=== PATIENT | female | born 1975 | race African-American/Black ===

== ENCOUNTER 2016-12-22 19:17 | Inpatient (IN) ==
[2016-12-22] MEDS ORDERED: LACTATED RINGERS 1,000 ML IV ONE (19:50)
[2016-12-22] MEDS ORDERED: ONDANSETRON 4 MG/2 ML VIAL IV STA (19:50)
[2016-12-22] MEDS ORDERED: HYDROmorphone 2 MG/1 ML VIAL IV STA (19:50)
[2016-12-22] MEDS ORDERED: ONDANSETRON 4 MG/2 ML VIAL ONE (19:54)
[2016-12-22] MEDS ORDERED: HYDROmorphone 2 MG/1 ML VIAL ONE (19:55)
[2016-12-22 20:03] LABS: Basophils % 0.1 % (0.0-0.8); Eosinophils % 0.4 % (0.00-10.9); Hematocrit 24.6 VOL% (35.7-47.0); Hemoglobin 7.4 GM/DL (12.0-16.0); Immature Granulocytes % 0.7 %; Immature Granulocytes Absolute 0.08 #; Lymphocytes # 0.4 10*3/uL (1.4-4.0); Lymphocytes % 3.7 % (21.3-54.2); Mean Corpuscular HGB Conc 30.1 GM/DL (32-36); Mean Corpuscular Hemoglobin 22 PG (27-34); Mean Corpuscular Volume 72.6 FL (87-102); Monocytes # 0.1 10*3/uL (0.11-0.8); Monocytes % 0.9 % (1.7-12.7); NRBC # 0.03 10*3/uL; Neutrophils # 10.3 10*3/uL (1.4-7.4); Neutrophils % 94.2 % (38.7-73.9); Platelet Count 348 T/CUMM (130-400); Red Blood Count 3.39 MC/CUMM (3.8-5.5); Red Cell Distribution Width 17.1 % (9.3-17.3)
--- NOTE | 2016-12-22 20:12 | EKG Report ---
Stationary ECG Study [facility] ER Test Date: 12/22/2016 7:32:03 PM Pat Name: SUZY DICKERSON Department: Room: Gender: F Lock Master: Faisal : 1975 Requested by: Ayan Dickerson Order Number: [id number] Reading MD: RACHELL WOODS Intervals [place] Rate: 119 P: 64 LA: 146 QRS: 71 QRSD: 102 T: 52 QT: 428 QTc: 499 Interpretive Statements SINUS TACHYCARDIA at 119 bpm Prolonged QTC INTERVAL Electronically Signed On 12-24-16 16:34:19 CDT by RACHELL WOODS [email or web address]
[2016-12-22 20:26] LABS: Blood Urea Nitrogen 11 MG/DL (7-18); Calcium 8.5 MG/DL (8.5-10.1); Glucose 70 MG/DL (74-106); Magnesium 1.3 MG/DL (1.8-2.4); Osmolality,Calculated 275.4 MOS/KG (273-304); Potassium 3.3 MMOL/L (3.5-5.1); Sodium 140 MMOL/L (136-145); Troponin I Only 0.016 NG/ML (0.00-0.045)
--- NOTE | 2016-12-22 20:39 | CT Report ---
CT chest pulmonary embolism Indication: Dyspnea Comparison: None available Technique: Axial CT imaging of the chest is performed with intravenous contrast. Contrast dose is 160 cc of Omnipaque 350. Findings: There is poor enhancement of the pulmonary arteries and veins. No definite thrombus or other abnormality is identified in the pulmonary arteries or veins. The pulmonary vessel caliber is within normal limits. The heart, mediastinum and great vessels appear within normal limits. Air space density is seen in the right lower lobe mostly linear and configuration. Surrounding pulmonary parenchyma shows no evidence of airspace disease or abnormal density. No effusion or pneumothorax is present. Impression: No evidence of definite pulmonary thromboembolism. Linear airspace density right lower lung, indicating atelectasis. This CT exam was performed using one or more the following dose reduction techniques: Automated exposure control, adjustment of the MA and/or KV according to patient size, or use of iterative reconstruction technique. PROCEDURE INTERPRETED AT [facility] DEPARTMENT OF RADIOLOGY Final Report Signed by: Dr. Fidel Huerta
[2016-12-22 20:54] LABS: Band Neutrophils 5 % (0-10); Hypochromasia 1+; Lymphocytes 7 % (20-55); Microcytosis Slight; Ovalocytes Few; Platelet Estimate Normal; Poikilocytosis 1+; Segmented Neutrophils 87 % (50-85); Tear Drop Cells Few; Total Cells Counted 100
[2016-12-22] MEDS ORDERED: ASPIRIN CHEW 81 MG TABLET PO STA (20:58)
[2016-12-22] MEDS ORDERED: CEFTAROLINE 600 MG in SODIUM CHLORIDE 0.9% 100 ML IV STA (21:01)
[2016-12-22] MEDS ORDERED: ASPIRIN 325 MG TABLET ONE (21:13)
--- NOTE | 2016-12-22 21:16 | Ultrasound Report ---
Venous Doppler ultrasound bilateral lower extremities Indication: Swelling Comparison: None available Findings: No evidence of echogenic, noncompressible thrombus seen in the visualized veins of the extremities. Color Doppler venous waveform pattern is within normal limits. Impression: No evidence of deep venous thrombosis. Ultrasound images stored and captured. PROCEDURE INTERPRETED AT [facility] DEPARTMENT OF RADIOLOGY Final Report Signed by: Dr. Fidel Huerta
[2016-12-22] MEDS ORDERED: CEFTAROLINE 600 MG VIAL IV ONE (21:21)
[2016-12-22] MEDS ORDERED: SODIUM CHLORIDE 0.9% 100 ML IV ONE (21:21)
--- NOTE | 2016-12-22 21:39 | Emergency Department Note ---
Nicole Costa Mantricia, am scribing for, and in the presence of, Ayan Dickerson MD 19:53. Tuan Costa Hans, MD, personally performed the services described in this documentation, ascribed by Paola Rivera in my presence, and it is both accurate and complete . Arrival - Arrival Chief Complaint: Shortness of Breath Stated Complaint: had a csection cut hurt and chest pain ED Nursing Triage Note: pt states that she had csection on , reports incision was infected, saw doctor yesterday and was prescribed clindamycin and reports feeling sob since she started taking medication. o2 sat 93% on RA. incision open, draining foul smelling drainage Mode of Arrival: Wheelchair Limitations: No Limitations Source: Patient Time Seen by Provider: 12/22/16 19:33 - History of Present Illness HPI Narrative: Pt is a 41 y/o black female arriving to ED via wheelchair with c/o SOB that onset yesterday. Pt reports that she had a section performed on December 11. Now, she states that the incision has gotten infected so she went to see her PCP yesterday and was given Clindamycin. Since taking the medications, pt states that she has been SOB. She also c/o LLE swelling and left sided chest pain and states that it feels like "someone is sitting on her chest." Pt had similar sxs 3 years ago and reports that she was given pain medications and a daily aspirin. She confirms that she using a C-pap machine nightly. Pt has a FHx of heart problems. No other complaints were reported to ED. Onset (ago): day(s) Consistency: constant Severity: mild Allergies/Adverse Reactions: Allergies Allergy/AdvReac Type Severity Reaction Status Date / Time Penicillins Allergy ITCHING Verified 12/22/16 19:21 Review of System - Review of System 12 point system: reviewed and no additional remarkable complaints except as stated - Review of System Constitutional: Present: chills, diaphoresis, other ( incision infection). Absent: fever Respiratory: Present: other (SOB). Absent: cough Cardiovascular: Present: chest pain (left sided) Gastrointestinal: Present: abdominal pain. Absent: nausea, vomiting, diarrhea Musculoskeletal: Present: other (LLE swelling). Absent: arm pain, back pain, leg pain, neck pain Medical,Surgical,& Family Hx - Social History Smoking Status: Never smoker Frequency of Alcohol Use: None Type of Drug Use: None Exam Vital Signs: Vital Signs Temperature 97.9 F 12/22/16 19:21 Pulse Rate 121 H 12/22/16 19:40 Respiratory Rate 24 12/22/16 19:40 Blood Pressure 120/91 12/22/16 19:40 O2 Sat by Pulse Oximetry 92 L 12/22/16 19:40 - General General appearance: alert, in no apparent distress - Head Head exam: Present: atraumatic, normocephalic, normal inspection - Eye Eye exam: Present: normal appearance, PERRL, EOMI - ENT ENT exam: Present: normal exam, normal oropharynx, mucous membranes moist, TM's normal bilaterally, normal external ear exam - Neck Neck exam: Present: normal inspection, full ROM, trachea midline. Absent: tenderness - Chest Chest inspection: Present: normal inspection, symmetric chest wall rise. Absent : tenderness - Respiratory Respiratory exam: Present: normal lung sounds bilaterally - Cardiovascular Cardiovascular exam: Present: normal rhythm, tachycardia, normal heart sounds - Abdominal Exam Abdominal exam: Present: soft, tenderness (focally tender around wound), normal bowel sounds, other (1 cm open wound with pus s/p ; foul-smelling). Absent: distention, guarding, rebound - Extremities Exam Extremities exam: Present: normal inspection, full ROM, normal capillary refill. Absent: tenderness, pedal edema - Back Exam Back exam: Present: normal inspection, full ROM. Absent: tenderness - Neurological Exam Neurological exam: Present: alert, oriented X3, CN II-XII intact, normal gait, reflexes normal - Psychiatric Psychiatric exam: Present: normal affect, normal mood - Skin Skin exam: Present: warm, dry, intact, normal color Course Course Narrative: This patient was evaluated with an extensive workup in the ER that included blood work, chest x-ray, EKG, and CT scan of the chest PE protocol as well as duplex ultrasound to rule out DVT. There is no evidence of venous thromboembolism and her initial EKG and cardiac enzymes were negative for acute coronary syndrome. She did have a wound infection that was pretty much well drained already we did repeat some cultures and give her some Teflaro in the ER. I discussed her care with Dr. Sullivan who is the DIRECTOR GLOBAL covering for Dr. Hernandez and also with the hospitalist. These 2 specialists have agreed to admit the patient to rule out an acute coronary syndrome and also Dr. Sullivan has agreed to see her to check on her Pfannenstiel infection. Results - Labs CBC & BMP: 12/22/16 19:35 12/22/16 19:35 Disposition Clinical Impression: Chest pain Case discussed with: patient Disposition: Still a Patient Condition: Stable Instructions: Chest Pain (ED), Wound Infection (ED) Time of Disposition: 21:39
--- NOTE | 2016-12-22 22:10 | Hospitalist History & Physical ---
Assessment and Plan - Time spent with patient Time spent with patient: Greater than 30 minutes (1) Shortness of breath Status: Acute Assessment and plan: Shortness of breath - likely multifactorial: MICHELE, Anemia, Asthma - stopped Clindamycin - oxygen - history of Asthma/MICHELE - Patient appears stable so no need for ABG at this time - Incentive spirometry - Nebulizer treatments - CT reviewed and is shows atelectasis - will monitor Current Visit: Yes (2) Anemia Status: Acute Assessment and plan: Anemia - possible due to recent surgery - anemia panel and FOBT ordered - 2 units of pRBC's ordered - will monitor Current Visit: Yes (3) Hypomagnesemia Status: Acute Assessment and plan: Hypomagnesium - IV and PO replacement - will monitor Current Visit: Yes (4) Hypokalemia Status: Acute Assessment and plan: Hypokalemia - PO replacement - will monitor Current Visit: Yes (5) Wound dehiscence, Status: Acute Assessment and plan: Wound Dehiscene s/p - IV Vancomycin and Teflaro - Wound Culture - CT abdomen and Pelvis ordered - Certified Medical Coder consult - Pain control - hemoglobin A1C ordered - will monitor Current Visit: Yes (6) Chest pain Status: Acute Assessment and plan: Chest pain - anemia may be contributing - oxygen - telemetry - serial cardiac enzyme - Lipid panel - pain control - Echocardiogram - will monitor Current Visit: Yes (7) Lower extremity edema Status: Acute Assessment and plan: Lower extremity Edema - Left worse than the right - bilateral venous dopplers negative - Echocardiogram ordered - will monitor Current Visit: Yes History of Present Illness Chief complaint: Shortness of breath; Chest pain; wound infection History of present illness: Ms. Maldonado is a 41 year old female with a history of obesity, diabetes, asthma, hypertension, MICHELE on CPAP, and dyslipidemia that presented to the ER with complaints of chest pain, shortness of breath, and wound infection. Patient reports she had an on December [address] Mindi Hernandez at [facility]. She noticed some development of drainage and wound opening on December 16. Patient reports calling her ACADEMIC INTERVENTIONIST but was instructed to keep her appointment. Patient went to [place] ER yesterday and was prescribed clindamycin. Patient reports after the clindamycin she began have hot flashes, chest pain, and worsening shortness of breath. Patient also reports pain from a . Patient reports the chest pain is described as a left-sided pressure, intermittent, and nonradiating. Patient also has some orthopnea that she reports is chronic. She also reports bilateral edema but it is worse on the left side (patient reports that is common for her left leg to swell more than the right when she does have swelling). Patient does sleep with a CPAP at home but does not have home oxygen. Patient does have a nebulizer machine that she uses. ER workup was significant for anemia, hypomagnesia, and hypokalemia. Wound cultures were also obtained from patient dehiscence. Patient also was found to be hypoxic with oxygen saturation of 90% and was tachycardic with a heart rate in the 120s but this improved after receiving pain medications. Dr. Sullivan agreed to see the patient for Dr. Hernandez in consultation. Patient will be admitted to hospitalist service for further management. Allergies Allergy/AdvReac Type Severity Reaction Status Date / Time Penicillins Allergy ITCHING Verified 12/22/16 19:21 Medical,Surgical,& Family Hx - Medical History Cardio: History of: Hypertension Endocrine: History of: Diabetes Mellitus (NIDDM), Dyslipidemia Respiratory: History of: Asthma, Obstructive Sleep Apnea - Surgical History HEENT Surgeries: Surgical HX of: Tonsilectomy & Adenoidectomy Abdominal Surgeries: Surgical HX of: Cholecystectomy Reproductive Surgeries: Surgical HX of;: Section, Tubal Ligation - Family History Family History: Reports;: Family Heart Disease, Family Hypertension - Social History Smoking Status: Never smoker Frequency of Alcohol Use: None Type of Drug Use: None Marital Status: Single Lives With:: Children Functional capacity: independent ambulation 12 point system: reviewed and no additional remarkable complaints except as stated Exam - Constitutional Vitals: Period Temp Pulse Resp BP Sys/Pearson Pulse Ox Last 24 Hr 97.9 F 120-121 18-24 120-139/85-91 92-93 General appearance: no acute distress, morbidly obese - Head Head exam: Present: normal inspection - Eye Eye exam: Present: EOMI, other (pale conjunctiva) - ENT ENT exam: Present: normal oropharynx, other (moist mucous membranes) - Neck Neck exam: Present: normal inspection - Respiratory Respiratory exam: Present: other (coarse breath sounds throughout) - Cardiovascular Cardiovascular exam: Present: regular rate and rhythm. Absent: systolic murmur - GI/Abdominal GI/Abdominal exam: Present: normal bowel sounds, tenderness (tenderness in area of scar), soft, other (1-2cm wound dehiscence of bikini incision of c- section; possible tracting of the wound) - Extremities Exam Extremities exam: Present: edema (bilateral lower extremity edema, left worse than right) - Neurological Exam Neurological exam: Present: alert, oriented X3 - Psychiatric Psychiatric exam: Present: normal affect, normal mood - Skin Skin exam: Present: normal color Results - Labs CBC & BMP: 12/22/16 19:35 12/22/16 19:35 - EKG EKG results: no acute changes - Diagnostic Findings Procedure: CT - chest: report reviewed by me (atelectatasis; NO PE)
[2016-12-22] MEDS ORDERED: MAGNESIUM SULF RIDER 2 GM in PREMIX 1 EACH IV ONE (23:16)
[2016-12-22] MEDS ORDERED: LACTULOSE 20 GM/30 ML UDCUP PO PRN (23:16)
[2016-12-22] MEDS ORDERED: SODIUM CHLORIDE 0.9% 250 ML IV PRN (23:16)
[2016-12-22] MEDS ORDERED: FUROSEMIDE 40 MG/4 ML VIAL IV ONE (23:16)
[2016-12-22] MEDS ORDERED: PROMETHAZINE 25 MG TABLET PO PRN (23:16)
[2016-12-22] MEDS ORDERED: ONDANSETRON 4 MG/2 ML VIAL IV PRN (23:16)
[2016-12-22] MEDS ORDERED: ACETAMINOPHEN 325 MG TABLET PO PRN (23:16)
[2016-12-22] MEDS ORDERED: ENOXAPARIN 40 MG/0.4 ML SYRINGE SUBCUT SCH (23:16)
[2016-12-22] MEDS: ALBUTEROL/IPRATROPIUM 3 ML NEB RESP TX SCH (23:45)
[2016-12-23] MEDS: POTASSIUM CHLORIDE 20 MEQ TABLET PO SCH ×3 (00:12→21:05)
[2016-12-23] MEDS: MAGNESIUM OXIDE 400 MG TABLET PO SCH ×3 (00:12→21:05)
[2016-12-23] MEDS: MORPHINE 2 MG/1 ML SYRINGE IV PRN ×3 (00:25→17:10)
[2016-12-23] MEDS ORDERED: VANCOMYCIN INJ 2,000 MG in SODIUM CHLORIDE 0.9% 500 ML IV SCH (01:00)
[2016-12-23] MEDS: ALBUTEROL/IPRATROPIUM 3 ML NEB RESP TX SCH ×5 (03:44→19:33)
[2016-12-23 07:04] LABS: Basophils % 0.2 % (0.0-0.8); Eosinophils % 0.2 % (0.00-10.9); Hematocrit 23.7 VOL% (35.7-47.0); Hemoglobin 7.2 GM/DL (12.0-16.0); Immature Granulocytes % 1.5 %; Immature Granulocytes Absolute 0.29 #; Lymphocytes # 0.5 10*3/uL (1.4-4.0); Lymphocytes % 2.5 % (21.3-54.2); Mean Corpuscular HGB Conc 30.4 GM/DL (32-36); Mean Corpuscular Hemoglobin 23 PG (27-34); Mean Corpuscular Volume 74.8 FL (87-102); Mean Platelet Volume 10.7 FL (9.6-12.0); Monocytes # 0.2 10*3/uL (0.11-0.8); Monocytes % 1.1 % (1.7-12.7); Neutrophils # 18.5 10*3/uL (1.4-7.4); Neutrophils % 94.5 % (38.7-73.9); Platelet Count 381 T/CUMM (130-400); Red Blood Count 3.17 MC/CUMM (3.8-5.5); Red Cell Distribution Width 17.3 % (9.3-17.3); White Blood Count 19.5 T/CUMM (4-12)
[2016-12-23 07:40] LABS: Cholesterol 176 MG/DL (50-200); HDL Cholesterol 59 MG/DL (40-60); Risk Ratio 2.98; Triglycerides 212 MG/DL (2-150); Troponin I Only < 0.015 NG/ML (0.00-0.045); VLDL CHOLESTEROL 42.4 MG/DL
[2016-12-23 07:41] LABS: Albumin 1.8 G/DL (3.4-5.0); Bilirubin,Total 0.4 MG/DL (0.2-1.0); Calcium 8.1 MG/DL (8.5-10.1); Osmolality,Calculated 286.5 MOS/KG (273-304); Potassium 4.1 MMOL/L (3.5-5.1)
[2016-12-23 07:47] LABS: Folate 5.9 NG/ML (5.4-24.0); Vitamin B12 1087 PG/ML (211-911)
[2016-12-23 07:50] LABS: Band Neutrophils 15 % (0-10); Hypochromasia 2+; Lymphocytes 3 % (20-55); Microcytosis 1+; Platelet Estimate Adequate; Segmented Neutrophils 82 % (50-85); Total Cells Counted 100
[2016-12-23 08:25] LABS: Sedimentation Rate-Westergren 138 MM/HR (0-20)
[2016-12-23] MEDS ORDERED: CEFTAROLINE 600 MG in SODIUM CHLORIDE 0.9% 100 ML IV SCH (09:00)
[2016-12-23] MEDS: PANTOPRAZOLE 40 MG TABLET PO SCH (09:50)
[2016-12-23] MEDS: INSULIN REGULAR 100 UNIT/ML SUBCUT SCH ×4 (10:05→21:09)
--- NOTE | 2016-12-23 10:39 | Hospitalist Progress Note ---
Assessment and Plan (1) Deep incisional surgical site infection Status: Acute Assessment and plan: Wound cultures growing a gram-negative christian. There were no blood cultures obtained which are going to be drawn this morning. Patient is on Teflaro and vancomycin I would discontinue the Teflaro give the patient levofloxacin 750 mg IV daily: She has allergies to penicillin. Current Visit: Yes (2) Chest pain Status: Acute Assessment and plan: Patient ruled out for myocardial infarction however I am concerned that she is very short winded she was admitted to the hospital with a one leg swollen more than the other. Check a d-dimer if possible patient should have will CT of the chest to evaluate for pulmonary embolism. She has recently had also has been which could be provocative events for DVT. Current Visit: Yes (3) Shortness of breath Status: Acute Assessment and plan: As above Current Visit: Yes (4) Lower extremity edema Status: Acute Assessment and plan: Patient's venous ultrasound was negative for DVT of the wrist with checking d- dimer if there is positive patient will have CTA evaluate for PE Current Visit: Yes (5) Microcytic anemia Status: Acute Assessment and plan: It appears this been a chronic problem with this patient because I called [facility] to evaluate on how his she was doing before the . On 11 December prior to surgery her hemoglobin was 8.2 with hematocrit 26.5 and MCV of 73.6 after surgery on the hemoglobin was low at 7.7 with hematocrit of 25. This pretty much has remained the same. However ferritin is in the 90s which in the face of current inflammatory and acute infection still could stand for iron deficiency. I believe she needs IV iron supplementation. I will give her Venofer 300 mg IV once. Current Visit: Yes Hospitalist: Subjective Interval history: Patient has been seen interviewed and examined and chart has been reviewed. This is a 41-year-old lady recently had a at [facility] with a healthy baby presents to the hospital with chest pain shortness of breath and wound dehiscence explaining a lot of "" passed from the surgical wound. Was admitted by my colleagues overnight. Wound cultures were obtained C blood cultures. Patient was started on vancomycin and Teflaro. No blood cultures were noted to have been obtained. Exam - Constitutional Vitals: Period Temp Pulse Resp BP Sys/Pearson Pulse Ox Last 24 Hr 97.6 F-98.4 F 89-121 18-24 116-156/64-99 89-98 General appearance: morbidly obese - Head Head exam: Present: normocephalic, atraumatic - Eye Eye exam: Present: EOMI Pupils: Present: PETR - ENT ENT exam: Present: normal oropharynx - Respiratory Respiratory exam: Present: clear to auscultation bilaterally - Cardiovascular Cardiovascular exam: Present: tachycardia - Extremities Exam Extremities exam: Present: full ROM - Neurological Exam Neurological exam: Present: alert, oriented X3, CN II-XII intact - Skin Skin exam: Present: other (The yeast suprapubic surgical wound with some drainage.) Results - Labs CBC & BMP: 12/23/16 04:42 12/23/16 04:42 Lab Results: I have reviewed the past 24 hour labs Specialty Discharge - Follow Up or Referrals
[2016-12-23] MEDS ORDERED: LEVOFLOXACIN INJ 750 MG in PREMIX 1 EACH IV SCH (11:00)
[2016-12-23] MEDS ORDERED: VANCOMYCIN INJ 1,250 MG in SODIUM CHLORIDE 0.9% 250 ML IV SCH (11:30)
[2016-12-23] MEDS ORDERED: IRON SUCROSE 300 MG in SODIUM CHLORIDE 0.9% 100 ML IV ONE (11:30)
--- NOTE | 2016-12-23 12:50 | ECHO Report ---
Celestina Maldonado Exam Date: 12/23/2016 09:31 Referring Physician: Technologist: Machelle Proctor LRNADINE Age: 41 Ht (in): 60 Wt (lb): 297 Gender: F Exam Location: [facility] Indications: lower extremity edema, hypokalemia, chest pain, SOB, anemia, hypomagnesemia BP: 125 / 71 HR: 102 Rhythm: Sinus tachycardia Technical Quality: IMPRESSIONS Left ventricular ejection fraction is estimated at 50-55 %. Mild concentric left ventricular hypertrophy with mild diastolic dysfunction. No significant valvular disease is seen. MEASUREMENTS (Male / Female) Normal Values 2D ECHO LV Diastolic Diameter PLAX 5.2 cm 4.2 - 5.9 / 3.9 - 5.3 cm LV Systolic Diameter PLAX 4.1 cm LV Fractional Shortening PLAX 20.8 % IVS Diastolic Thickness 1.3 cm 0.6 - 1.0 / 0.6 - 0.9 cm LVPW Diastolic Thickness 1.4 cm 0.6 - 1.0 / 0.6 - 0.9 cm RV Internal Dim ED PLAX 2.8 cm Aortic Root Diameter 2.6 cm LA Systolic Diameter LX 4.1 cm 3.0 - 4.0 / 2.7 - 3.8 cm FINDINGS Left Ventricle Normal left ventricular cavity size. Mild concentric left ventricular hypertrophy with mild diastolic dysfunction. Left ventricular ejection fraction is estimated at 50-55 % Right Ventricle Normal right ventricular size. Right Atrium Normal right atrial size. Left Atrium Normal left atrial size. Mitral Valve Morphologically normal mitral valve. Aortic Valve The aortic valve is trileaflet, delicate and has normal motion. Tricuspid Valve Morphologically normal tricuspid valve. Pulmonic Valve Morphologically normal pulmonic valve. Pericardium No pericardial effusion. Aorta Normal size aortic root and proximal ascending aorta. Roman Knox (Electronically Signed) Final Date: 23 December 2016 12:49
--- NOTE | 2016-12-23 13:18 | CT Report ---
CT abdomen pelvis Indication: Wound infection Comparison: None available Technique: Axial CT imaging of the abdomen and pelvis is performed with intravenous and oral contrast. Contrast dose is 100 cc of Omnipaque 350. Findings: Cardiac and lung bases are within normal limits CT abdomen: The liver spleen pancreas and adrenal glands are normal in size and enhancement. No evidence of focal lesion is demonstrated in these solid organs. Gallbladder has been removed. Kidneys are normal in size and enhancement. No evidence of hydronephrosis or nephrolithiasis is seen. Multiple diverticula are present in the colon. The bowel caliber is normal and no wall thickening or adjacent inflammatory change is seen. No evidence of free fluid or free air is present. There is an area of increased soft tissue density in the mesentery that measures 2.5 cm in size and has a small amount of peripheral ossification. CT pelvis: Abdominal wall defect is present far inferiorly with pockets of air and stranding but no focal fluid collection is identified. Multiple diverticula are present in the sigmoid colon and there are small amount of adjacent stranding and wall thickening seen in the short segment of the sigmoid colon pelvic bowel appears within normal limits. Bladder shows no evidence of abnormality. The uterus is enlarged. Impression: Lower anterior abdominal wall wound with pockets of air and stranding around the wound but evidence of abscess identified. Uterine enlargement. Multiple diverticula with small amount of adjacent stranding involving a short segment of the sigmoid colon could indicate mild diverticulitis. Peripherally calcified density in the mid abdomen mesentery could represent to dropped gallstone. Gallbladder has been removed previously. This CT exam was performed using one or more the following dose reduction techniques: Automated exposure control, adjustment of the MA and/or KV according to patient size, or use of iterative reconstruction technique. PROCEDURE INTERPRETED AT [facility] DEPARTMENT OF RADIOLOGY Final Report Signed by: Dr. Fidel Huerta
[2016-12-23] MEDS: LEVOFLOXACIN INJ 750 MG in PREMIX 1 EACH IV SCH (14:53)
--- NOTE | 2016-12-23 15:12 | OB/GYN Consult Note ---
Assessment and Plan - Time spent with patient Time spent with patient: Less than 30 minutes (1) Deep incisional surgical site infection Problem details: Wet to dry dressing changes BID, Agree with current antibiotics , Wound culture pending,sequential pneumatics as pt at very high risk for lower extremity DVT. Status: Acute Current Visit: Yes Qualifiers: Encounter type: initial encounter Qualified Code(s): T81.4XXA - Infection following a procedure, initial encounter History of Present Illness Chief complaint: wound dehescense History of present illness: Ms. Maldonado is a 41 year old female s/p csection by Dr. Hernandez on 12/11 who reports wound breakdown on the 15. The patient is morbidly obese with multiple complaints that predate the and are complicating her post op course. The silver impregnated dressing that normally covers the csection incision for [address] for only 2-3 days. She has a large panniculus that covers her incision site and her incision is open and draining purulent material. The incision will need to be packed with wet to dry dressing 4x 4 or iodoform bid and she will need to be followed by wound care when available. Her antibiotic was changed and a culture obtained. I agree with the management by the hospitalist group. I would suggest adding sequential pneumatics as she is at such high risk for a lower extremity DVT. Allergies Allergy/AdvReac Type Severity Reaction Status Date / Time Penicillins Allergy ITCHING Verified 12/22/16 19:21 Medical,Surgical,& Family Hx - Medical History Cardio: History of: Hypertension Psychological: History of: Depression Endocrine: History of: Diabetes Mellitus (NIDDM), Dyslipidemia Respiratory: History of: Asthma, Obstructive Sleep Apnea Gastrointestinal: History of: GERD Hematology: History of: Anemia - Surgical History HEENT Surgeries: Surgical HX of: Tonsilectomy & Adenoidectomy Abdominal Surgeries: Surgical HX of: Cholecystectomy Reproductive Surgeries: Surgical HX of;: Section, Hysterectomy, Tubal Ligation - Family History Family History: Reports;: Family Heart Disease, Family Hypertension - Social History Smoking Status: Never smoker Frequency of Alcohol Use: None Type of Drug Use: None 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 - Constitutional Vitals: Vital Signs Temp Pulse Pulse Resp BP BP Pulse Ox 12/23/16 15:05 84 18 12/23/16 15:00 89 18 12/23/16 14:43 99 F 89 20 124/78 12/23/16 14:38 93 H 20 130/73 92 L 12/23/16 14:33 98.9 F 96 H 133/82 93 L 12/23/16 14:27 98.9 F 95 H 22 110/68 95 12/23/16 13:00 98.5 F 99 H 20 125/75 94 L 12/23/16 12:00 98.7 F 100 H 22 137/80 92 L 12/23/16 11:30 98.5 F 106 H 22 120/68 92 L 12/23/16 11:25 98.3 F 99 H 22 128/72 92 L 12/23/16 11:20 99 F 99 H 22 126/71 94 L 12/23/16 11:15 97.8 F 94 H 20 126/80 99 12/23/16 11:00 94 H 20 12/23/16 10:55 92 H 18 12/23/16 08:00 97.6 F 102 H 20 125/71 12/23/16 07:49 97.6 F 102 H 20 125/71 12/23/16 07:07 91 H 20 12/23/16 07:02 89 18 12/23/16 05:50 98 F 95 H 20 123/64 12/23/16 03:55 90 20 12/23/16 03:45 92 H 20 12/22/16 23:47 95 H 20 12/22/16 23:40 12/22/16 23:35 98 H 18 12/22/16 23:25 98.4 F 100 H 20 128/71 12/22/16 23:10 104 H 18 135/79 96 12/22/16 23:00 102 H 20 116/78 91 L 12/22/16 22:30 104 H 18 135/79 96 12/22/16 22:00 96 H 20 123/71 95 12/22/16 21:30 100 H 18 156/99 96 12/22/16 21:00 100 H 20 125/80 95 12/22/16 20:30 108 H 18 130/87 92 L 12/22/16 20:00 113 H 20 121/76 97 12/22/16 19:40 121 H 18 120/91 120/91 92 L 12/22/16 19:21 97.9 F 120 H 22 139/85 93 L Pulse Ox Pulse Ox Pulse Ox 12/23/16 15:05 98 12/23/16 15:00 97 12/23/16 14:43 12/23/16 14:38 12/23/16 14:33 12/23/16 14:27 12/23/16 13:00 12/23/16 12:00 12/23/16 11:30 12/23/16 11:25 12/23/16 11:20 12/23/16 11:15 12/23/16 11:00 99 12/23/16 10:55 96 12/23/16 08:00 89 L 12/23/16 07:49 89 L 12/23/16 07:07 98 12/23/16 07:02 98 12/23/16 05:50 94 L 12/23/16 03:55 98 12/23/16 03:45 92 L 12/22/16 23:47 97 12/22/16 23:40 92 L 12/22/16 23:35 92 L 12/22/16 23:25 93 L 12/22/16 23:10 12/22/16 23:00 12/22/16 22:30 12/22/16 22:00 12/22/16 21:30 12/22/16 21:00 12/22/16 20:30 12/22/16 20:00 12/22/16 19:40 12/22/16 19:21 General appearance: morbidly obese - GI/Abdominal GI/Abdominal exam: Present: other (Approx 10 cm of Pfanenstiel skin incision is and draining light brown purulent material. SubQ fat layer is open as well. culture is pending . ) Results - Labs CBC & BMP: 12/23/16 04:42 12/23/16 04:42 - Impressions Post op wound infection, morbid obesity
[2016-12-23] MEDS: VANCOMYCIN INJ 2,000 MG in SODIUM CHLORIDE 0.9% 500 ML IV SCH (16:33)
[2016-12-23] MEDS ORDERED: DOXYCYCLINE HYCLATE 100 MG CAPSULE PO SCH (21:00)
[2016-12-23] MEDS: ENOXAPARIN 40 MG/0.4 ML SYRINGE SUBCUT SCH (21:09)
[2016-12-24] MEDS: ALBUTEROL/IPRATROPIUM 3 ML NEB RESP TX SCH ×7 (00:09→23:18)
[2016-12-24] MEDS: MORPHINE 2 MG/1 ML SYRINGE IV PRN ×3 (00:28→18:38)
[2016-12-24 00:45] LABS: Hematocrit 25.9 VOL% (35.7-47.0); Hemoglobin 7.9 GM/DL (12.0-16.0)
[2016-12-24] MEDS: VANCOMYCIN INJ 2,000 MG in SODIUM CHLORIDE 0.9% 500 ML IV SCH ×2 (02:39→18:31)
[2016-12-24] MEDS: POTASSIUM CHLORIDE 20 MEQ TABLET PO SCH ×2 (08:18→22:03)
[2016-12-24] MEDS: PANTOPRAZOLE 40 MG TABLET PO SCH (08:18)
[2016-12-24] MEDS: MAGNESIUM OXIDE 400 MG TABLET PO SCH ×2 (08:18→22:03)
[2016-12-24] MEDS: metroNIDAZOLE 500 MG TABLET PO SCH ×3 (10:03→23:41)
--- NOTE | 2016-12-24 10:53 | Hospitalist Progress Note ---
Assessment and Plan (1) Deep incisional surgical site infection Problem details: Wet to dry dressing changes BID, Agree with current antibiotics , Wound culture pending,sequential pneumatics as pt at very high risk for lower extremity DVT. Status: Acute Assessment and plan: Wound cultures growing a gram-negative christian. There were no blood cultures obtained which are going to be drawn this morning. Patient is on Teflaro and vancomycin I would discontinue the Teflaro give the patient levofloxacin 750 mg IV daily: She has allergies to penicillin. Will metronidazole today 500 mg p.o. 3 times daily. Current Visit: Yes Qualifiers: Encounter type: initial encounter Qualified Code(s): T81.4XXA - Infection following a procedure, initial encounter (2) Chest pain Status: Acute Assessment and plan: The d-dimer is elevated patient's CT of the chest was negative for PE and a venous Doppler was negative for DVT. Most likely subclinical sepsis was responsible for the elevated D-dimers. Current Visit: Yes (3) Shortness of breath Status: Acute Assessment and plan: As above Current Visit: Yes (4) Lower extremity edema Status: Acute Assessment and plan: This most likely secondary to circulatory congestion Current Visit: Yes (5) Microcytic anemia Status: Acute Assessment and plan: It appears this been a chronic problem with this patient because I called [facility] to evaluate on how his she was doing before the . On 11 December prior to surgery her hemoglobin was 8.2 with hematocrit 26.5 and MCV of 73.6 after surgery on the hemoglobin was low at 7.7 with hematocrit of 25. This pretty much has remained the same. However ferritin is in the 90s which in the face of current inflammatory and acute infection still could stand for iron deficiency. I have given her Venofer 300 mg IV once. Current Visit: Yes Hospitalist: Subjective Interval history: Patient has been seen interviewed and examined and chart has been reviewed admitted yesterday with his problems breathing leg edema dehiscence of surgical wound loosely associated infection CT scan of the abdomen and pelvis revealed possible diverticulitis and also pulse surgery infection patient had a C- section. Was referred to the report of the CT scan for details. She is currently on Levofloxacin and vancomycin divided oral metronidazole to complete anaerobic coverage. Exam - Constitutional Vitals: Period Temp Pulse Resp BP Sys/Pearson Pulse Ox Last 24 Hr 96.8 F-99.7 F 82-106 18-22 110-138/68-87 90-99 General appearance: morbidly obese - Head Head exam: Present: normocephalic, atraumatic - Eye Eye exam: Present: EOMI Pupils: Present: PETR - ENT ENT exam: Present: normal exam - Neck Neck exam: Present: normal inspection - Respiratory Respiratory exam: Present: clear to auscultation bilaterally - Cardiovascular Cardiovascular exam: Present: regular rate and rhythm - GI/Abdominal GI/Abdominal exam: Present: soft, other (Tender to palpation in the lower quadrants wound is to drain 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 Subsequent repeat blood testing is tomorrow with his CMP CBC and ferritin) Specialty Discharge - Follow Up or Referrals
[2016-12-24] MEDS: LEVOFLOXACIN INJ 750 MG in PREMIX 1 EACH IV SCH (14:08)
[2016-12-24] MEDS: INSULIN REGULAR 100 UNIT/ML SUBCUT SCH ×3 (18:34→22:04)
[2016-12-24] MEDS: ENOXAPARIN 40 MG/0.4 ML SYRINGE SUBCUT SCH (22:03)
[2016-12-25] MEDS: ALBUTEROL/IPRATROPIUM 3 ML NEB RESP TX SCH ×6 (02:50→23:35)
[2016-12-25 06:25] LABS: Basophils % 0.1 % (0.0-0.8); Eosinophils # 0.2 10*3/uL (0.0-0.87); Eosinophils % 1.6 % (0.00-10.9); Hematocrit 24.9 VOL% (35.7-47.0); Hemoglobin 7.6 GM/DL (12.0-16.0); Immature Granulocytes Absolute 0.38 #; Lymphocytes # 1.4 10*3/uL (1.4-4.0); Lymphocytes % 15.1 % (21.3-54.2); Mean Corpuscular HGB Conc 30.5 GM/DL (32-36); Mean Corpuscular Hemoglobin 24 PG (27-34); Mean Corpuscular Volume 76.9 FL (87-102); Mean Platelet Volume 10.2 FL (9.6-12.0); Monocytes # 0.7 10*3/uL (0.11-0.8); Monocytes % 7.9 % (1.7-12.7); NRBC # 0.02 10*3/uL; Neutrophils # 6.7 10*3/uL (1.4-7.4); Neutrophils % 71.3 % (38.7-73.9); Platelet Count 354 T/CUMM (130-400); Red Blood Count 3.24 MC/CUMM (3.8-5.5); Red Cell Distribution Width 18.7 % (9.3-17.3); White Blood Count 9.4 T/CUMM (4-12)
[2016-12-25 07:01] LABS: Alanine Aminotransferase 12 U/L (13-56); Albumin 1.7 G/DL (3.4-5.0); Alkaline Phosphatase 147 U/L (45-117); Aspartate Amino Transferase 16 U/L (0-37); Bilirubin,Total < 0.39 MG/DL (0.2-1.0); Blood Urea Nitrogen 7 MG/DL (7-18); Calcium 8.6 MG/DL (8.5-10.1); Glucose 108 MG/DL (74-106); Magnesium 2.1 MG/DL (1.8-2.4); Osmolality,Calculated 275.5 MOS/KG (273-304); Potassium 4.2 MMOL/L (3.5-5.1); Sodium 139 MMOL/L (136-145)
[2016-12-25] MEDS: MORPHINE 2 MG/1 ML SYRINGE IV PRN ×2 (07:34→13:25)
[2016-12-25] MEDS: VANCOMYCIN INJ 2,000 MG in SODIUM CHLORIDE 0.9% 500 ML IV SCH ×2 (07:39→18:37)
[2016-12-25] MEDS: INSULIN REGULAR 100 UNIT/ML SUBCUT SCH ×4 (07:42→20:42)
--- NOTE | 2016-12-25 07:51 | Physician Query Form ---
CLICK EDIT DOCUMENT TO SELECT QUERY ANSWER --> OK --> SIGN Dominga Wilkins RN, CCDS Certified Clinical Inspector Filter Tip W) [phone] (f) [phone] [email or web address]: Make your selection(s) from the choices in EACH section by typing an "x" and enter comments in the comment section. Please use your independent medical judgment in providing your response. This request does not imply that any particular answer is desired or expected. CLINICAL INDICATORS: (Providers should not edit this section) The medical record indicates that the patient was admitted with chest pain, wound infection from recent , On the : WBC of 19.5#, Bands of 15, D -dimer 4.3#, Pulse of 121/ Respirations of 24# in the ER, and the patient is on antibiotics. ----On the --"Most likely subclinical sepsis was responsible for the elevated D-dimers" Please clarify which, if any, of the following is the etiology of the above symptoms and treatment rendered: ( x) Sepsis due to a localized infection, please specify infection: Deep pelvic surgical wound infection; post ( ) Severe Sepsis (sepsis with acute organ failure) - Please specify type acute organ failure: ( ) Septic Shock (severe sepsis with hypotension) ( ) SIRS of noninfectious origin ( ) Sepsis due to a device, implant or graft, please specify: ( ) Localized infection only, without systemic illness, please specify infection : ( ) Bacteremia (abnormal lab finding only, does not indicate systemic illness) ( ) Other condition, please specify: ( ) Clinically unable to determine Criteria for Sepsis (SIRS due to an infection) should be based on 2 or more of the following being present: Temperature > 101F or < 96.8F WBC > 12,000 or < 4,000, or > 10% bands Tachycardia HR > 90 beats/minute Tachypnea RR > 20 breaths/minute or PaCO2 > 32mmHg Lactate level > 2.0 mmol/L (>4 is equivalent to severe sepsis) Altered Mental Status Mottling of skin or prolonged capillary refill Non-diabetic hyperglycemia (blood sugar >120 mg/dl) Other evidence of acute organ failure associated with sepsis ( severe sepsis) COMMENTS: PLEASE ALSO DOCUMENT RESPONSE IN PROGRESS NOTES AND/OR DISCHARGE SUMMARY Use of terms such as suspected, likely, or probable (associated with a specific diagnosis that is being evaluated, monitored, or treated as if it exists) are acceptable and can be restated in the discharge summary if not ruled out. MTDD
[2016-12-25] MEDS: POTASSIUM CHLORIDE 20 MEQ TABLET PO SCH ×2 (08:25→20:39)
[2016-12-25] MEDS: MAGNESIUM OXIDE 400 MG TABLET PO SCH ×2 (08:25→20:39)
[2016-12-25] MEDS: PANTOPRAZOLE 40 MG TABLET PO SCH (08:25)
[2016-12-25] MEDS: metroNIDAZOLE 500 MG TABLET PO SCH ×3 (08:25→20:39)
[2016-12-25 08:51] LABS: Hemoglobin A1 (Alkaline) 97.6 % (96.5-98.5); Hemoglobin A2 (Alkaline) 2.4 % (1.5-3.5)
--- NOTE | 2016-12-25 10:09 | Hospitalist Progress Note ---
Assessment and Plan (1) Deep incisional surgical site infection Problem details: Wet to dry dressing changes BID, Agree with current antibiotics , Wound culture pending,sequential pneumatics as pt at very high risk for lower extremity DVT. Status: Acute Assessment and plan: Wound cultures growing Proteus mirabilis and for other organisms including 3 gram-positive cocci and 1 gram-negative christian. Is obviously a synergistic infection. She is currently on vancomycin IV levofloxacin IV and the metronidazole oral. Would need wound care consultation. This thought to the beginning of the day was to get her to [facility] for more wound care and antibiotic. Sure that will be another underlying swing bed sitting however because she is that Medicaid both of these cannot accept her. Try to consider home health with wound care and IV and back. Choice of antibiotics will depend on more information coming out of the antibiogram. If there is no MRSA, on ertapenem 1 g IV every day for 10 days will be the recommendation. This is MRSA involved, is being the surgical wound infection and will need vancomycin alongside oral Levaquin and oral metronidazole. Current Visit: Yes Qualifiers: Encounter type: initial encounter Qualified Code(s): T81.4XXA - Infection following a procedure, initial encounter (2) Chest pain Status: Acute Assessment and plan: T resolve Current Visit: Yes (3) Shortness of breath Status: Acute Assessment and plan: Improved but patient still has exertional dyspnea Current Visit: Yes (4) Lower extremity edema Status: Acute Assessment and plan: Chronic circulatory congestion Current Visit: Yes (5) Microcytic anemia Status: Acute Assessment and plan: It appears this been a chronic problem with this patient because I called [facility] to evaluate on how his she was doing before the . On 11 December prior to surgery her hemoglobin was 8.2 with hematocrit 26.5 and MCV of 73.6 after surgery on the hemoglobin was low at 7.7 with hematocrit of 25. This pretty much has remained the same. However ferritin is in the 90s which in the face of current inflammatory and acute infection still could stand for iron deficiency. I have given her Venofer 300 mg IV once during this admission. Current Visit: Yes Hospitalist: Subjective Interval history: Patient has been seen interviewed and examined and chart has been reviewed. Cellulitis of abdominal wall of the yeast surgical wound on an infected deep incision following done on 11 December. Patient did isolate Proteus mirabilis, a second gram-negative Road and 3 gram-positive cocci in this wound. This obviously synergistic infection. Antibiogram is still pending. She is currently on IV levofloxacin and revealed vancomycin and oral metronidazole. She will need wound care should continue antibiotics for at least a 10 days. Transferred to swing bed setting or outtake will be necessary for both wound care and antibiotic treatment. Exam - Constitutional Vitals: Period Temp Pulse Resp BP Sys/Pearson Pulse Ox Last 24 Hr 96.7 F-99.1 F 82-104 18-22 128-173/75-93 70-96 General appearance: morbidly obese - Head Head exam: Present: normocephalic, atraumatic - Eye Eye exam: Present: EOMI Pupils: Present: PETR - ENT ENT exam: Present: normal exam - Neck Neck exam: Present: normal inspection - Respiratory Respiratory exam: Present: clear to auscultation bilaterally - Cardiovascular Cardiovascular exam: Present: regular rate and rhythm - GI/Abdominal GI/Abdominal exam: Present: normal bowel sounds, other (Rotund abdomen was a large panniculus. The wound is in the suprapubic area she is obviously a surgical wound that has dehisced in the middle. Still draining. Note CT scan of the abdomen and pelvis report on the chart) - Neurological Exam Neurological exam: Present: alert, oriented X3, CN II-XII intact - Psychiatric Psychiatric exam: Present: normal affect, normal mood Results - Labs CBC & BMP: 12/25/16 06:10 12/25/16 06:10 Lab Results: I have reviewed the past 24 hour labs (White count is normal still has a an anemia. Patient was given IV iron on this admission. Expect some moderate response over time.) Specialty Discharge - Follow Up or Referrals
[2016-12-25] MEDS: LEVOFLOXACIN INJ 750 MG in PREMIX 1 EACH IV SCH (10:46)
[2016-12-25] MEDS: SODIUM HYPOCHLORITE 0.25% IRRIG 473 ML BOTTLE TOP SCH ×2 (15:25→20:40)
[2016-12-25] MEDS: ENOXAPARIN 40 MG/0.4 ML SYRINGE SUBCUT SCH (20:39)
[2016-12-26] MEDS: ALBUTEROL/IPRATROPIUM 3 ML NEB RESP TX SCH ×6 (03:38→23:33)
[2016-12-26] MEDS: INSULIN REGULAR 100 UNIT/ML SUBCUT SCH ×4 (08:09→21:12)
[2016-12-26] MEDS: LEVOFLOXACIN INJ 750 MG in PREMIX 1 EACH IV SCH (08:10)
[2016-12-26] MEDS: PANTOPRAZOLE 40 MG TABLET PO SCH (08:11)
[2016-12-26] MEDS: metroNIDAZOLE 500 MG TABLET PO SCH ×3 (08:11→21:11)
[2016-12-26] MEDS: MAGNESIUM OXIDE 400 MG TABLET PO SCH ×2 (08:11→21:11)
[2016-12-26] MEDS: SODIUM HYPOCHLORITE 0.25% IRRIG 473 ML BOTTLE TOP SCH ×2 (08:11→21:12)
[2016-12-26] MEDS: POTASSIUM CHLORIDE 20 MEQ TABLET PO SCH ×2 (08:11→21:11)
[2016-12-26] MEDS: VANCOMYCIN INJ 2,000 MG in SODIUM CHLORIDE 0.9% 500 ML IV SCH ×2 (09:43→21:10)
--- NOTE | 2016-12-26 17:23 | OB/GYN Progress Note ---
INDUSTRIAL RELATIONS DIRECTOR - PN: Subj Interval history: History reviewed and case discussed with Dr. Sullivan who saw her in my absence...Pt well known to us and had been admitted several times during the for issues related to her comorbid risk factors and noncompliance.... she is at high risk for poor compliance as well as need for social support and frequent visits...I discussed the case with the nurse and examined her wound which appears to be responding well to dressing changes and IV antibiotics... ID noted and waiting for sensitivities.... We will be glad to follow her outpatient twice a week and will follow her until her incision is completely healed.... At discharge we can see her Mondays at 1 pm and then again on at 1 pm fro follow-up . Exam INDUSTRIAL RELATIONS DIRECTOR - Constitutional Vitals: Vital Signs Temp Pulse Pulse Resp BP BP Pulse Ox 12/26/16 15:58 97.1 F L 88 20 144/94 98 12/26/16 14:32 75 20 98 12/26/16 14:27 78 22 97 12/26/16 11:44 97.3 F L 88 20 150/93 97 12/26/16 10:28 85 20 99 12/26/16 10:23 77 18 97 12/26/16 07:51 96.5 F L 86 20 146/86 96 12/26/16 07:02 75 20 99 12/26/16 06:57 81 20 97 12/26/16 04:00 18 12/26/16 03:57 97.7 F 88 18 134/86 95 12/26/16 02:00 20 12/26/16 00:14 18 12/25/16 23:15 97.6 F 90 18 130/82 94 L 12/25/16 20:39 97.9 F 92 H 20 155/84 97 12/25/16 20:00 89 20 99 12/25/16 19:51 85 20 94 L Results - Labs CBC & BMP: 12/25/16 06:10 12/25/16 06:10
[2016-12-26] MEDS: ENOXAPARIN 40 MG/0.4 ML SYRINGE SUBCUT SCH (21:11)
[2016-12-27] MEDS: ALBUTEROL/IPRATROPIUM 3 ML NEB RESP TX SCH ×4 (03:22→15:29)
[2016-12-27] MEDS: POTASSIUM CHLORIDE 20 MEQ TABLET PO SCH (09:38)
[2016-12-27] MEDS: MAGNESIUM OXIDE 400 MG TABLET PO SCH (09:38)
[2016-12-27] MEDS: metroNIDAZOLE 500 MG TABLET PO SCH (09:38)
[2016-12-27] MEDS: PANTOPRAZOLE 40 MG TABLET PO SCH (09:38)
[2016-12-27] MEDS: LEVOFLOXACIN INJ 750 MG in PREMIX 1 EACH IV SCH (09:39)
[2016-12-27] MEDS: INSULIN REGULAR 100 UNIT/ML SUBCUT SCH ×2 (09:48→12:11)
[2016-12-27] MEDS: SODIUM HYPOCHLORITE 0.25% IRRIG 473 ML BOTTLE TOP SCH (10:10)
[2016-12-27] MEDS: VANCOMYCIN INJ 2,000 MG in SODIUM CHLORIDE 0.9% 500 ML IV SCH (11:05)
--- NOTE | 2016-12-27 11:48 | Discharge Summary ---
Hospital Course - Hospital Course Hospital Course: Ms. Maldonado is a 41 year old female with a history of obesity, diabetes, asthma, hypertension, MICHELE on CPAP, and dyslipidemia that presented to the ED at [facility] on the night of December 22, 2016 with complaints of chest pain, shortness of breath, and wound infection. Patient reports she had an on December [address] Mindi Hernandez at [facility]. She noticed some development of drainage and wound opening on December 16. Patient reports calling her CREDIT REPORT CHECKER but was instructed to keep her appointment. Patient went to [place] ER yesterday and was prescribed clindamycin. Patient reports after the clindamycin she began have hot flashes, chest pain, and worsening shortness of breath. Patient also reports pain from a . Patient reports the chest pain is described as a left-sided pressure, intermittent, and nonradiating. Patient also has some orthopnea that she reports is chronic. She also reports bilateral edema but it is worse on the left side (patient reports that is common for her left leg to swell more than the right when she does have swelling). Patient does sleep with a CPAP at home but does not have home oxygen. Patient does have a nebulizer machine that she uses. ER workup was significant for anemia, hypomagnesia, and hypokalemia. Wound cultures were also obtained from patient dehiscence. Patient also was found to be hypoxic with oxygen saturation of 90% and was tachycardic with a heart rate in the 120s but this improved after receiving pain medications. Patient will be admitted to hospitalist service for further management. The patient was gently rehydrated and empiric antibiotics were initiated. Bilateral venous Doppler studies were performed on December 22 2016 which were essentially unremarkable for the presence of deep vein thrombosis. CT abdomen and pelvis reported lower anterior abdominal wall with pockets of air and stranding around the wound but evidence of abscess identified, uterine enlargement, multiple diverticuli with small amount of adjacent stranding involving us short segment of the sigmoid colon which could indicate mild diverticulitis, peripherally calcified density in the mid abdomen mesentery could represent a dropped gallstone. And CREDIT REPORT CHECKER consultation was requested. The patient's wound was evaluated and wound care was initiated. The patient's condition gradually improved. The patient's condition is stable. She has not experienced any significant overnight events. Today, we feel that she is indeed appropriate for discharge to follow-up with her primary care physician, and her expanding machine operator Dr. Mindi Hernandez as directed. Diagnosis - Discharge Diagnosis (1) Deep incisional surgical site infection Status: Acute (2) Chest pain Status: Acute (3) Shortness of breath Status: Acute (4) Lower extremity edema Status: Acute (5) Microcytic anemia Status: Acute Specialty Discharge - Follow Up or Referrals Discharge Plan - Discharge Data Disposition: Home Health Service Condition at Discharge: Stable Discharge Diet: diabetic diet, heart healthy Activity: resume usual activities as tolerated Hygiene: may shower Driving: not until seen by doctor Contact your physician if you experience:: fever over 101, Redness or swelling, Nausea/Vomiting, Shortness of breath - Discharge Medications New Ertapenem [INVanz] 1,000 mg IV Q24H #14 vial HYDROcodone/ACETAMIN 7.5-325 [[place] 7.5-325] 1 tablet PO Q4H PRN #30 tablet PRN Reason: Pain Moderate (4-7) Minocycline [Minocin] 100 mg PO Q12HR #28 capsule Pantoprazole Tab [Protonix Tab] 40 mg PO DAILY #30 tablet - Follow Up or Referral - Forms/Instructions Instructions: Chest Pain (ED), Wound Infection (ED), Wound Infection (DC), Surgical Site Infections (GEN), Anemia (DC) Additional Discharge Instructions: Discussed with the patient clearly regarding issue of penicillin allergy. Patient has itching. Denies any signs of IgE mediated reaction to penicillin that would include shortness of breath swelling of the tongue. She also denied any events of epidermal necrolysis following use of penicillin. This therefore is a simple allergy which causes less than 2 % cross-reactivity with other beta lactams. She ended benefit from use of Invanz and therefore Invanz is going to be ordered. Exam - Constitutional Vitals: Period Temp Pulse Resp BP Sys/Pearson Pulse Ox Last 24 Hr 96.7 F-99 F 80-104 18-22 109-146/72-94 93-99 General appearance: morbidly obese - Head Head exam: Present: normocephalic - ENT ENT exam: Present: normal oropharynx - Neck Neck exam: Present: normal inspection - Respiratory Respiratory exam: Present: clear to auscultation bilaterally - Cardiovascular Cardiovascular exam: Present: regular rate and rhythm - GI/Abdominal GI/Abdominal exam: Present: normal bowel sounds - Extremities Exam Extremities exam: Present: full ROM - Neurological Exam Neurological exam: Present: alert, oriented X3, CN II-XII intact - Psychiatric Psychiatric exam: Present: normal affect, normal mood - Skin Skin exam: Present: normal color, warm, other (Surgical site infection at site of ) Discharge Results Procedures and tests throughout hospitalization: Pending Orders 12/23/16 11:17 Blood Culture Routine 12/23/16 16:55 Occult Blood, Stool Routine Labs on day of discharge: Labs from last 24 hours 12/27/16 12/27/16 12/26/16 11:17 07:40 21:13 POC Glucose 132 H 147 H 155 H 12/26/16 15:35 POC Glucose 143 H Preliminary micro results at discharge 12/23/16 11:17 Blood Culture - Preliminary Blood No growth at 3 days 12/23/16 11:17 Blood Culture - Preliminary Blood No growth at 3 days DS: Provider Date of admission: 12/22/16 21:40 Primary care physician: . No PCP Attending physician on admission: Margarito Pulliam MD Consults: 12/22/16 23:16 Consult to Physician [CONS] Routine Comment: Consulting Provider: Consult to Physician [CONS] Routine Comment: Consulting Provider: Arnel Sullivan Person Notified: Dr Sullivan Date Notified: 12/23/16 Time Notified: 08:09 12/23/16 11:03 Consult to Pharmacy [CONS] Routine Reason for Pharmacy Consult: Dose/Manage Vancomycin 12/23/16 14:47 Consult to Wound Care [facility] [CONS] Routine Reason for Wound Care: Wound Care Management Consult Comment: incision with open area and drainage 12/25/16 09:55 Consult to Case Mgmt/Social Srvs [CONS] Routine Reason for Case Mgmt/Social Srvs: Discharge Planning Consult Comment: [facility] 12/25/16 09:57 Consult to Wound Care - [place] [CONS] Routine Reason for Wound Care: Wound Care Management Consult Comment: wound care nurse to do wound care 12/27/16 10:38 Consult to Case Mgmt/Social Srvs [CONS] Routine Reason for Case Mgmt/Social Srvs: Home Health Consult Comment: Invaz 1 gram IV Q24 hours for 14 days Discharging clinician: Maury Morel MD
[2016-12-27] MEDS ORDERED: MINOCYCLINE 100 MG CAPSULE PO SCH (12:00)
[2016-12-27] MEDS ORDERED: ERTAPENEM 1,000 MG in SODIUM CHLORIDE 0.9% 100 ML IV SCH (12:00)
[2016-12-27 12:18] VITALS: BP 143/83
== END 2016-12-27 16:30 | disposition home health service (06) | DRG 561 ==
LOC: N.ED 19:17 → SUATTDRO 21:40 → N.EDINP 21:40 → N.2E 22:22
PROVIDERS: ADMIT Family Medicine; ATTEND Internal Medicine Infectious Disease